=== PATIENT | male | born 2000 | race Caucasian/White ===

== ENCOUNTER 2021-11-26 11:42 | Emergency (ER) | payer OTHER, SELFPAY ==
[2021-11-26 11:59] VITALS: BP 126/74; PULSE 70; RESP 18; TEMP 36.5; O2SAT 100; BMI 20.9
--- NOTE | 2021-11-26 13:49 | ED_ITS ---
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 He did fall from standing, did hit the back of his head on the desk but has no new headache or significant pain with that. It is a little sore. It was brief and he knew that it was coming. He stood up started to feel nauseated and then vision started blacking out and had tunnel vision. He got up this morning had 1 sip of water. That was already had until after the event 20 started drinking more water. He has had maybe about 1/2 cup of water at this point. He is no longer feeling nauseated. Prior to this there was no abdominal pain, no nausea or vomiting no urinary symptoms. He felt sick over the weekend, did not check his temperature but felt feverish at times. At times he had chills and had to cover up with blankets. He had a headache with that in some generalized body aches but no specific symptoms such as cough, sore throat, otalgia, no GI symptoms. He has had no travel. His only other episode of fainting was when he was young when he cut himself and saw blood. He believes his mom has thyroid issues but otherwise is unaware of any significant cardiac issues in the family. Related Data Home Medications Medication Instructions Recorded Confirmed No Known Home Medications 11/26/21 11/26/21 Allergies Allergy/AdvReac Type Severity Reaction Status Date / Time No Known Drug Allergies Allergy Verified 11/26/21 12:03 Review of Systems Status of ROS: Reports: 10 or more systems reviewed and unremarkable except as noted in History and below PFSH PFS Social History Smoking Status: Never smoker Do you use any of these nicotine containing products: None Second hand tobacco smoke exposure: No How often do you have a drink containing alcohol: monthly or less How many standard drinks containing alcohol do you have on a typical day: 3 or 4 How often do you have six or more drinks on one occasion: Less than monthly AUDIT-C Alcohol total score: 3 Non-prescribed substance use: marijuana (any form) service: No Exam Const: Vital Signs, click to edit/add: Vital Signs - 24 hr 11/26/21 11:59 11/26/21 14:16 11/26/21 14:16 Temperature 97.7 F Pulse Rate [Right Pulse Oximeter] 70 Pulse Rate [orthos tatic lying] 65 Pulse Rate [orthos tatic sitting] Pulse Rate [orthos tatic standing] Respiratory Rate 18 Blood Pressure [Ri ght Upper Arm] 126/74 Blood Pressure [or thostatic lying] 123/73 Blood Pressure [or thostatic sitting] Blood Pressure [or thostatic standing ] Pulse Oximetry 100 99 Oxygen Delivery Me thod Room Air 11/26/21 14:23 11/26/21 15:00 Temperature Pulse Rate [Right Pulse Oximeter] 79 Pulse Rate [orthos tatic lying] 60 Pulse Rate [orthos tatic sitting] 68 Pulse Rate [orthos tatic standing] 90 Respiratory Rate 18 Blood Pressure [Ri ght Upper Arm] 120/79 Blood Pressure [or thostatic lying] 123/73 Blood Pressure [or thostatic sitting] 126/75 Blood Pressure [or thostatic standing ] 120/79 Pulse Oximetry 100 Oxygen Delivery Me thod Room Air Documenting provider has reviewed patient's vital signs: yes Common normals: no apparent distress, average body habitus, oriented x3, no limitations, healthy appearing, alert and well nourished General appearance: cooperative, comfortable and well kempt Nutritional appearance: thin HENMT: Common normals: normocephalic, head/scalp atraumatic, hearing grossly normal bilaterally, external ears normal, EAC's normal, TM's normal bilaterally, external nose normal, nasal mucous membranes and turbinates normal, oropharynx normal, dentition normal and gingiva normal Head and scalp: normocephalic and atraumatic Nose: external nose normal and nasal mucous membranes and turbinates normal External ear: external ears normal External auditory canal: EAC's normal Tympanic membrane: TM's normal bilaterally Other: Oropharynx with dry mucosa, tongue appears dry and not glistening but otherwise no lesions or abnormalities of the mucosa noted. Eye: Common normals: PERRL, EOMs intact bilaterally, conjunctivae normal and no scleral icterus Conjunctiva: conjunctiva(e) normal Pupil: PERRL Neck & C-Spine: Common normals: full ROM, no lymphadenopathy, supple, no meningeal signs, no JVD and thyroid normal Thyroid: thyroid normal Chest: Common normals: inspection of chest normal Resp: Common normals: normal respiratory effort, no retractions, no use of accessory muscles and clear to auscultation bilaterally Auscultation: clear to auscultation bilaterally Cardio: Common normals: no JVD, regular rate, regular rhythm, S1 normal heart sound, S2 normal heart sound, no gallops, no clicks, no murmurs and no rub Rate: regular rate Rhythm: regular rhythm Heart sounds: S1 normal and S2 normal GI: Common normals: Normal to inspection, nondistended, normoactive bowel sounds present, soft to palpation, non-tender, no hepatosplenomegaly, no masses and no bruits Palpation: soft and no hepatosplenomegaly Extremity: Common normals: normal to inspection, full ROM, normal capillary refill, no joint enlargement, no clubbing, cyanosis or edema, no calf tenderness and no pedal edema Neuro: Common normals: oriented x3, CN's II-XII intact bilaterally, moves all extremities, no focal motor deficits, no sensory deficits noted and gait normal Sensorium/orientation: alert Meningeal signs: no meningeal signs Speech: speech normal Psych: Appearance: well kempt Course Course Hospital Course: We will obtain EKG, have him on pulse oximetry while here. I will get orthostatic vitals. Given him an option of IV fluids verses drinking oral fluids for me. He would prefer to just drink oral fluids. We will get appropriate labs as well. Sounds as if he may have had a vasovagal episode in the setting of poor oral intake with underlying probable viral infection. Reevaluation(s) Reevaluation #1: Patient is re-evaluated, feeling fine. He has went through a whole bottle of water while here. He is not orthostatic, labs are normal, no abnormalities on pulse oximetry while here. COVID is negative. Have reviewed with him that this is presumably vasovagal syncope. With 1 episode, it is not overly concerning, however if he should start having subsequent episodes, further evaluation would be recommended. Time: 15:34 Vital Signs Vital signs: Initial Vital Signs Temperature 97.7 F 11/26/21 11:59 Temperature Source Temporal Artery Scan 11/26/21 11:59 Pulse Rate 70 11/26/21 11:59 Respiratory Rate 18 11/26/21 11:59 Blood Pressure 126/74 11/26/21 11:59 Blood Pressure Mean 91 11/26/21 11:59 Pulse Oximetry 100 11/26/21 11:59 Oxygen Delivery Method 11/26/21 11:59 Vital Signs Temperature 97.7 F 11/26/21 11:59 Pulse Rate 70 11/26/21 11:59 Respiratory Rate 18 11/26/21 11:59 Blood Pressure 126/74 11/26/21 11:59 Pulse Oximetry 100 11/26/21 11:59 Oxygen Delivery Method 11/26/21 11:59 Temperature 97.7 F 11/26/21 11:59 Pulse Rate 79 11/26/21 15:00 Respiratory Rate 18 11/26/21 15:00 Blood Pressure 120/79 11/26/21 15:00 Pulse Oximetry 100 11/26/21 15:00 Oxygen Delivery Method 11/26/21 15:00 Medical Decision Making Lab Data Lab results reviewed: Yes I reviewed the patient's lab results Labs: Lab Results 11/26/21 11/26/21 11/26/21 Range/Units 14:11 14:11 14:11 WBC 6.57 (4.50-11.00) K/uL RBC 5.14 (4.30-5.90) m/uL Hgb 15.6 (13.5-17.5) gm/dL Hct 43.9 (37.0-53.0) % MCV 85 (80-100) fL MCH 30 (26-34) pg MCHC 36 (32-36) gm/dL RDW Coeff of Ronna 11.8 (11.5-15.5) % Plt Count 174 (140-440) K/uL Neut % (Auto) 85.9 H (42.0-72.0) % Lymph % (Auto) 6.7 L (20-44) % [place] % (Auto) 6.8 (0.0-11.0) % Eos % (Auto) 0.0 (0.0-7.0) % Baso % (Auto) 0.3 (0.0-3.0) % Neut # (Auto) 5.60 (1.7-7.0) K/uL Lymph # (Auto) 0.40 L (0.90-2.90) K/uL [place] # (Auto) 0.40 (0.00-0.90) K/UL Eos # (Auto) 0.00 (0.00-0.50) K/uL Baso # (Auto) 0.02 (0.00-0.30) K/uL Abs Immat Gran (auto) 0.02 (0.00-0.30) K/uL VBG pH (7.32-7.43) VBG pCO2 (40-50) mmHG VBG pO2 (25-47) mmHG VBG HCO3 (21-28) mmol/L Sodium 134 L (135-149) mmol/L Potassium 4.7 (3.6-5.1) mmol/L Chloride 99 (96-114) mmol/L Carbon Dioxide 24 (20-32) mmol/L BUN 13 (5-24) mg/dL Creatinine 1.1 (0.5-1.5) mg/dL Estimated Creat Clear 103.09 Estimated GFR 99 ml/min Glucose 122 H (60-115) mg/dL Lactate 1.4 (0.5-1.9) mmol/L Calcium 9.4 (8.4-10.6) mg/dL Total Bilirubin 0.7 (0.1-1.5) mg/dL AST 27 (12-35) U/L ALT 16 (4-50) U/L Alkaline Phosphatase 111 (40-150) U/L C-Reactive Protein 3.5 H (0.5-1.0) mg/dL Total Protein 8.1 (6.0-8.3) g/dL Albumin 4.9 (3.3-5.0) g/dL TSH (0.270-4.200) uIU/mL SARS-CoV-2 (PCR) (Negative) POC Troponin I (0.01-0.04) ng/ml 11/26/21 11/26/21 11/26/21 Range/Units 14:11 14:11 14:11 WBC (4.50-11.00) K/uL RBC (4.30-5.90) m/uL Hgb (13.5-17.5) gm/dL Hct (37.0-53.0) % MCV (80-100) fL MCH (26-34) pg MCHC (32-36) gm/dL RDW Coeff of Ronna (11.5-15.5) % Plt Count (140-440) K/uL Neut % (Auto) (42.0-72.0) % Lymph % (Auto) (20-44) % [place] % (Auto) (0.0-11.0) % Eos % (Auto) (0.0-7.0) % Baso % (Auto) (0.0-3.0) % Neut # (Auto) (1.7-7.0) K/uL Lymph # (Auto) (0.90-2.90) K/uL [place] # (Auto) (0.00-0.90) K/UL Eos # (Auto) (0.00-0.50) K/uL Baso # (Auto) (0.00-0.30) K/uL Abs Immat Gran (auto) (0.00-0.30) K/uL VBG pH (7.32-7.43) VBG pCO2 (40-50) mmHG VBG pO2 (25-47) mmHG VBG HCO3 (21-28) mmol/L Sodium (135-149) mmol/L Potassium (3.6-5.1) mmol/L Chloride (96-114) mmol/L Carbon Dioxide (20-32) mmol/L BUN (5-24) mg/dL Creatinine (0.5-1.5) mg/dL Estimated Creat Clear Estimated GFR ml/min Glucose (60-115) mg/dL Lactate (0.5-1.9) mmol/L Calcium (8.4-10.6) mg/dL Total Bilirubin (0.1-1.5) mg/dL AST (12-35) U/L ALT (4-50) U/L Alkaline Phosphatase (40-150) U/L C-Reactive Protein (0.5-1.0) mg/dL Total Protein (6.0-8.3) g/dL Albumin (3.3-5.0) g/dL TSH 0.580 (0.270-4.200) uIU/mL SARS-CoV-2 (PCR) Negative SARS-CoV-2 (Negative) POC Troponin I 0.02 (0.01-0.04) ng/ml 11/26/21 Range/Units 14:11 WBC (4.50-11.00) K/uL RBC (4.30-5.90) m/uL Hgb (13.5-17.5) gm/dL Hct (37.0-53.0) % MCV (80-100) fL MCH (26-34) pg MCHC (32-36) gm/dL RDW Coeff of Ronna (11.5-15.5) % Plt Count (140-440) K/uL Neut % (Auto) (42.0-72.0) % Lymph % (Auto) (20-44) % [place] % (Auto) (0.0-11.0) % Eos % (Auto) (0.0-7.0) % Baso % (Auto) (0.0-3.0) % Neut # (Auto) (1.7-7.0) K/uL Lymph # (Auto) (0.90-2.90) K/uL [place] # (Auto) (0.00-0.90) K/UL Eos # (Auto) (0.00-0.50) K/uL Baso # (Auto) (0.00-0.30) K/uL Abs Immat Gran (auto) (0.00-0.30) K/uL VBG pH 7.376 (7.32-7.43) VBG pCO2 46 (40-50) mmHG VBG pO2 29.0 (25-47) mmHG VBG HCO3 27 (21-28) mmol/L Sodium (135-149) mmol/L Potassium (3.6-5.1) mmol/L Chloride (96-114) mmol/L Carbon Dioxide (20-32) mmol/L BUN (5-24) mg/dL Creatinine (0.5-1.5) mg/dL Estimated Creat Clear Estimated GFR ml/min Glucose (60-115) mg/dL Lactate (0.5-1.9) mmol/L Calcium (8.4-10.6) mg/dL Total Bilirubin (0.1-1.5) mg/dL AST (12-35) U/L ALT (4-50) U/L Alkaline Phosphatase (40-150) U/L C-Reactive Protein (0.5-1.0) mg/dL Total Protein (6.0-8.3) g/dL Albumin (3.3-5.0) g/dL TSH (0.270-4.200) uIU/mL SARS-CoV-2 (PCR) (Negative) POC Troponin I (0.01-0.04) ng/ml ECG Data Attestation: I personally reviewed and interpreted this ECG as follows: (Sinus rhythm, 70 beats per minute, sinus arrhythmia noted. QT corrected 412 milliseconds) Prior ECG tracings: not available for review Critical Care Time Critical Care Time Critical Care Time: No Discharge Plan Discharge Clinical Impression: Vasovagal syncope Patient Disposition: Home, Self-Care Condition: Stable Instructions: Syncope (ED) Additional Instructions: I recommend that she try to drink more in the morning, consider possibly eating breakfast or something small in the morning as well. If you have a subsequent episodes of passing out or syncope, do need to seek further evaluation. No tear COVID was negative here, laboratory evaluation was normal including the TSH. The thyroid came back normal just prior to your discharge. Activity Level: Activity as Tolerated Discharge Diet: Regular Prescriptions: No Action No Known Home Medications Stand Alone Forms: [facility] Info Instructions
[2021-11-26 14:16] VITALS: BP 123/73; PULSE 65; O2SAT 99
[2021-11-26 14:23] VITALS: BP 120/79; BP 123/73; BP 126/75; PULSE 60; PULSE 68; PULSE 90
[2021-11-26 14:24] LABS: HCO3 VBG 27 mmol/L (21-28); PCO2 VBG 46 mmHG (40-50); pH VBG 7.376 (7.32-7.43)
[2021-11-26 14:29] LABS: Basophils Absolute Auto 0.02 K/uL (0.00-0.30); Basophils Percent Auto 0.3 % (0.0-3.0); Hematocrit 43.9 % (37.0-53.0); Hemoglobin* 15.6 gm/dL (13.5-17.5); Immature Granulocytes Abs Auto 0.02 K/uL (0.00-0.30); Lactate* 1.4 mmol/L (0.5-1.9); Lymphocytes Percent Auto 6.7 % (20-44); Mean Corpuscular HGB Conc 36 gm/dL (32-36); Mean Corpuscular Hemoglobin 30 pg (26-34); Mean Corpuscular Volume 85 fL (80-100); Monocytes Percent Auto 6.8 % (0.0-11.0); Neutrophils Percent Auto 85.9 % (42.0-72.0); Platelet Count* 174 K/uL (140-440); RDW Coefficient of Variation % 11.8 % (11.5-15.5); Red Blood Count 5.14 m/uL (4.30-5.90); White Blood Count* 6.57 K/uL (4.50-11.00)
[2021-11-26 14:34] LABS: Slide Review Reflex No
[2021-11-26 14:47] LABS: Albumin* 4.9 g/dL (3.3-5.0); Chloride* 99 mmol/L (96-114); Sodium* 134 mmol/L (135-149)
[2021-11-26 14:48] LABS: Potassium* 4.7 mmol/L (3.6-5.1)
[2021-11-26 14:49] LABS: Creatinine* 1.1 mg/dL (0.5-1.5); Est. Creatinine Clearance* 103.09; Estimated Glomerular Filt Rate 99 ml/min
[2021-11-26 14:50] LABS: Alkaline Phosphatase* 111 U/L (40-150); Aspartate Amino Transferase* 27 U/L (12-35); Bilirubin Total* 0.7 mg/dL (0.1-1.5); Carbon Dioxide* 24 mmol/L (20-32); Total Protein* 8.1 g/dL (6.0-8.3)
[2021-11-26 14:51] LABS: Alanine Aminotransferase* 16 U/L (4-50); Blood Urea Nitrogen* 13 mg/dL (5-24); Calcium* 9.4 mg/dL (8.4-10.6); Glucose* 122 mg/dL (60-115)
[2021-11-26 14:52] LABS: Troponin, Point-of-Care* 0.02 ng/ml (0.01-0.04)
[2021-11-26 14:53] LABS: C Reactive Protein* 3.5 mg/dL (0.5-1.0)
[2021-11-26 15:00] VITALS: BP 120/79; PULSE 79; RESP 18; O2SAT 100
[2021-11-26 15:19] LABS: SARS PCR* Negative SARS-CoV-2 (Negative)
--- NOTE | 2021-11-26 15:21 | ED.NURSE ---
patient is feeling fine and denies rosas or vision problems. sitting in the bed and waiting for results.
== END 2021-11-26 15:43 | disposition home or self-care (01) ==
PROVIDERS: Emergency Provider Family Medicine
DX: R55 Syncope and collapse (principal)
CPT/HCPCS: 36415; 80053; 82803; 83605; 84443; 84484; 85025; 86140; 87635; 93005; 94761; 99284

== ENCOUNTER 2022-05-03 18:37 | Emergency (ER) | payer OTHER, SELFPAY ==
[2022-05-03 18:43] VITALS: BP 124/78; PULSE 89; RESP 18; TEMP 37.5; O2SAT 97; BMI 21.0
[2022-05-03 19:36] LABS: Basophils Absolute Auto 0.06 K/uL (0.00-0.30); Basophils Percent Auto 0.8 % (0.0-3.0); Eosinophils Absolute Auto 0.09 K/uL (0.00-0.50); Eosinophils Percent Auto 1.2 % (0.0-7.0); Hematocrit 41.1 % (37.0-53.0); Hemoglobin* 14.2 gm/dL (13.5-17.5); Immature Granulocytes Abs Auto 0.02 K/uL (0.00-0.30); Immature Granulocytes Pct Auto 0.3 %; Lymphocytes Absolute Auto 2.07 K/uL (0.90-2.90); Lymphocytes Percent Auto 27.5 % (20-44); Mean Corpuscular HGB Conc 35 gm/dL (32-36); Mean Corpuscular Hemoglobin 31 pg (26-34); Mean Corpuscular Volume 88 fL (80-100); Monocytes Percent Auto 4.2 % (0.0-11.0); Neutrophils Absolute Auto 4.98 K/uL (1.7-7.0); Platelet Count* 282 K/uL (140-440); RDW Coefficient of Variation % 12.1 % (11.5-15.5); Red Blood Count 4.66 m/uL (4.30-5.90); White Blood Count* 7.54 K/uL (4.50-11.00)
[2022-05-03 19:49] LABS: Albumin* 4.8 g/dL (3.3-5.0); Chloride* 104 mmol/L (96-114)
[2022-05-03 19:50] LABS: Potassium* 3.6 mmol/L (3.6-5.1); Sodium* 141 mmol/L (135-149)
[2022-05-03 19:52] LABS: Aspartate Amino Transferase* 19 U/L (12-35); Bilirubin Direct* 0.1 mg/dL (0.0-0.5); Bilirubin Total* 0.5 mg/dL (0.1-1.5); Carbon Dioxide* 29 mmol/L (20-32); Creatinine* 0.9 mg/dL (0.5-1.5); Estimated Glomerular Filt Rate 125 ml/min; Slide Review Reflex No; Total Protein* 7.9 g/dL (6.0-8.3)
[2022-05-03 19:53] LABS: Alanine Aminotransferase* 15 U/L (4-50); Alkaline Phosphatase* 74 U/L (40-150); Blood Urea Nitrogen* 15 mg/dL (5-24); Calcium* 9.4 mg/dL (8.4-10.6); Glucose* 136 mg/dL (60-115)
--- NOTE | 2022-05-03 20:03 | ED.GENADULT ---
HPI - General Adult General Date Seen: 05/03/22 Chief complaint: Unspecified Complaint, Adult Stated complaint: Possible thyroid issues, wants blood work done Time Seen by Provider: 05/03/22 18:55 Source: patient Mode of arrival: ambulatory Limitations: no limitations History of Present Illness HPI narrative: Patient is a 21-year-old [employer] student, he is a [employer], physics and math major urgently from [place]. He comes in wanting tested for thyroid levels. Says for the past couple of weeks since starting the new semester, he has felt significantly stressed. He feels that his court slowed is heavier. He has been fatigued, he feels that his face is swollen. He feels like his skin is dry. He has not had any chest pain or shortness of breath. He has not noted any extremity swelling. No vision changes. No rashes. His mother has Haile's thyroiditis and he says he has ?all the symptoms, so he is concerned that he now has Haile's thyroiditis. He does note some mild symptoms of depression, he says he overall feels that he manages stress okay, he plays soccer and broom ball and these are good outlets for him. He does not smoke, denies substance use aside from occasional alcohol. Related Data Home Medications Medication Instructions Recorded Confirmed No Known Home Medications 05/02/22 05/02/22 Allergies Allergy/AdvReac Type Severity Reaction Status Date / Time No Known Drug Allergies Allergy Verified 05/03/22 18:42 [facility] Medical History Neck Pain Social History Smoking Status: Never smoker Do you use any of these nicotine containing products: None Second hand tobacco smoke exposure: No How often do you have a drink containing alcohol: monthly or less How many standard drinks containing alcohol do you have on a typical day: 3 or 4 How often do you have six or more drinks on one occasion: Less than monthly AUDIT-C Alcohol total score: 3 Non-prescribed substance use: marijuana (any form) service: No Exam Narrative: Exam Narrative: Vital signs as noted above. In general, an alert, well-appearing patient. Head: Normocephalic, atraumatic. I do not appreciate any facial swelling. Eyes: Pupils are equal reactive. Extraocular movements are full. Conjunctivae are normal. ENT: Mucous membranes are moist. Throat is normal. Neck: Supple without lymphadenopathy. Thyroid is normal. Heart: Regular rate and rhythm. No murmur or rub. Lungs: Clear bilaterally. No increased work of breathing, crackles or wheezes. Abdomen: Soft and nontender. No organomegaly. Extremities: Well perfused. No edema. No calf tenderness. Pulses intact. Neurologic: Patient is alert and oriented to person and place. Speech is fluent. Face is symmetric. Moves all extremities equally. Affect: Normal. Skin: Warm and dry. Well perfused. Const: Vital Signs, click to edit/add: Vital Signs - 24 hr 05/03/22 18:43 05/03/22 20:39 Temperature 99.5 F Pulse Rate [Pulse Oximeter] 89 63 Respiratory Rate 18 16 Blood Pressure [Ri ght Upper Arm] 124/78 124/80 Pulse Oximetry 97 96 Oxygen Delivery Me thod Room Air Room Air Documenting provider has reviewed patient's vital signs: yes Course Course Hospital Course: I checked a few routine labs including a CBC which shows a normal white blood cell count, hemoglobin of 14.2, normal platelets. Metabolic panel is normal, blood sugar nonfasting is 136. LFTs are normal. TSH is likewise normal at 0.595. I have discussed his results with him, and reassured him that his thyroid is normal, other labs are reassuring. He remains concerned that something is wrong. I have asked him to make sure that he is getting enough sleep, make sure that he is managing stress. For now, I would recommend that we just watch these symptoms and if he is having persistent problems that he follow up in clinic for additional evaluation is needed. Certainly, if he is worsening, if new symptoms develop, he can return at any time to the emergency department. At present, symptoms are somewhat non specific, exam is normal, vital signs are normal, labs are all normal. Specific diagnosis is not evident at this time. Vital Signs Vital signs: Initial Vital Signs Temperature 99.5 F 05/03/22 18:43 Temperature Source Temporal Artery Scan 05/03/22 18:43 Pulse Rate 89 05/03/22 18:43 Pulse Rhythm 05/03/22 18:43 Respiratory Rate 18 05/03/22 18:43 Blood Pressure 124/78 05/03/22 18:43 Blood Pressure Mean 93 05/03/22 18:43 Blood Pressure Position Sitting 05/03/22 18:43 Pulse Oximetry 97 05/03/22 18:43 Oxygen Delivery Method 05/03/22 18:43 Vital Signs Temperature 99.5 F 05/03/22 18:43 Pulse Rate 89 05/03/22 18:43 Respiratory Rate 18 05/03/22 18:43 Blood Pressure 124/78 05/03/22 18:43 Pulse Oximetry 97 05/03/22 18:43 Oxygen Delivery Method 05/03/22 18:43 Temperature 99.5 F 05/03/22 18:43 Pulse Rate 63 05/03/22 20:39 Respiratory Rate 16 05/03/22 20:39 Blood Pressure 124/80 05/03/22 20:39 Pulse Oximetry 96 05/03/22 20:39 Oxygen Delivery Method 05/03/22 20:39 Medical Decision Making Lab Data Labs: Lab Results 05/03/22 05/03/22 05/03/22 Range/Units 19:31 19:31 19:31 WBC 7.54 (4.50-11.00) K/uL RBC 4.66 (4.30-5.90) m/uL Hgb 14.2 (13.5-17.5) gm/dL Hct 41.1 (37.0-53.0) % MCV 88 (80-100) fL MCH 31 (26-34) pg MCHC 35 (32-36) gm/dL RDW Coeff of Ronna 12.1 (11.5-15.5) % Plt Count 282 (140-440) K/uL Neut % (Auto) 66.0 (42.0-72.0) % Lymph % (Auto) 27.5 (20-44) % [place] % (Auto) 4.2 (0.0-11.0) % Eos % (Auto) 1.2 (0.0-7.0) % Baso % (Auto) 0.8 (0.0-3.0) % Neut # (Auto) 4.98 (1.7-7.0) K/uL Lymph # (Auto) 2.07 (0.90-2.90) K/uL [place] # (Auto) 0.30 (0.00-0.90) K/UL Eos # (Auto) 0.09 (0.00-0.50) K/uL Baso # (Auto) 0.06 (0.00-0.30) K/uL Sodium 141 (135-149) mmol/L Potassium 3.6 (3.6-5.1) mmol/L Chloride 104 (96-114) mmol/L Carbon Dioxide 29 (20-32) mmol/L BUN 15 (5-24) mg/dL Creatinine 0.9 (0.5-1.5) mg/dL Estimated Creat Clear 130.20 Estimated GFR 125 ml/min Glucose 136 H (60-115) mg/dL Calcium 9.4 (8.4-10.6) mg/dL Total Bilirubin 0.5 (0.1-1.5) mg/dL Direct Bilirubin 0.1 (0.0-0.5) mg/dL AST 19 (12-35) U/L ALT 15 (4-50) U/L Alkaline Phosphatase 74 (40-150) U/L Total Protein 7.9 (6.0-8.3) g/dL Albumin 4.8 (3.3-5.0) g/dL TSH 0.595 (0.270-4.200) uIU/mL Discharge Plan Discharge Clinical Impression: Malaise and fatigue Patient Disposition: Home, Self-Care Condition: Stable Instructions: Fatigue (ED) Additional Instructions: Make sure you are getting another sleep and managing stress. If you feel that your symptoms are persistent any need additional evaluation, follow-up with clinic. If you feel you are getting worse or new symptoms, return to the emergency department. Prescriptions: No Action No Known Home Medications Follow Up/Referrals: Provider,Not a Local [Primary Care Provider] - Stand Alone Forms: IMN Info Instructions
[2022-05-03 20:39] VITALS: BP 124/80; PULSE 63; RESP 16; O2SAT 96
[2022-05-03 20:39] LABS: TSH With Reflex to FT4* 0.595 uIU/mL (0.270-4.200)
== END 2022-05-03 21:18 | disposition home or self-care (01) ==
PROVIDERS: Emergency Provider Emergency Medicine
DX: R53.81 Other malaise (principal); R53.83 Other fatigue
CPT/HCPCS: 36415; 80048; 80076; 84443; 85025; 99282; 99284

== ENCOUNTER 2023-02-13 16:46 | Day surgery (SDC) | payer OTHER, SELFPAY ==
[2023-02-13] VITALS (15 sets, daily range): BP systolic 125–156; BP diastolic 68–97; PULSE 70–98; RESP 12–18; TEMP 35.4–37.3; O2SAT 95–100; BMI 22.3
--- NOTE | 2023-02-13 17:20 | CRLHL7_ITS ---
For Patients: As a result of the Century Cures Act, medical imaging exams and procedure reports are released immediately into your electronic medical record. You may view this report before your referring provider. If you have questions, please contact your health care provider. INDICATION: Right lower quadrant abdominal pain COMPARISON: None. TECHNIQUE: CT of the abdomen and pelvis after the administration of intravenous contrast. Multiplanar axial, coronal, and sagittal reformats were reconstructed. Contrast: 79 mL Isovue 370 intravenously. Oral contrast was not administered. FINDINGS: Lung bases: Normal. Liver: Normal. No masses. Normal vasculature. Gallbladder and biliary tree: Normal gallbladder. No biliary duct dilation. Pancreas: Normal. Spleen: Normal. Normal size. Adrenal glands: Normal. No nodules. Kidneys and bladder: Normal size and position. No cyst or mass. No calculi. No urinary tract dilation. The urinary bladder is normal. GI: The appendix is dilated up to 1.6 cm. The appendiceal wall is thickened slightly hyper enhancing. There is a small appendicolith at the base. There is a mild amount of adjacent inflammation with no perforation or abscess. There is a large stool burden in the right colon. No dilated small bowel. Vessels: Aorta and major branches, including the mesenteric vessels: Patent. Normal caliber. No atherosclerotic plaques. IVC and tributaries: Normal. Mesenteric and portal veins: Normal. Peritoneum: No free fluid. Lymph nodes: No adenopathy. Pelvis: Physiologic appearance of the reproductive organs. Bones: Bilateral L5 pars defects with grade 1, 5 mm, anterolisthesis of L5 on S1. No focal bone lesions. Normal for age. Abdominal wall: Normal. IMPRESSION: IMPRESSION 1. Acute appendicitis. No abscess or perforation. 2. Bilateral L5 pars defects with grade 1 anterolisthesis of L5 on S1. Please note that all CT scans at this facility use dose modulation, iterative reconstruction, and/or weight-based dosing when appropriate to reduce radiation dose to as low as reasonably achievable. Dictated by Chandni Jay MD @ 02/13/2023 6:26:50 PM (Electronically Signed)
--- NOTE | 2023-02-13 17:22 | ED.ABDPAIN ---
HPI - Abdominal Pain General Time Seen by Provider: 17:15 Date Seen: 02/13/23 Chief Complaint: Abdominal Pain Stated Complaint: GI upset-New med reaction? Time Seen by Provider: 02/13/23 16:51 Source: patient and RN notes reviewed Mode of arrival: ambulatory Limitations: no limitations History of Present Illness HPI narrative: Patient is a 22-year-old male ambulatory into the ED of his own accord with complaint of right lower quadrant abdominal pain. He ate lunch somewhere around 11:00 a.m., knows he was done around noon. Since then he has developed some periumbilical abdominal pain that is moved to right lower quadrant. It was a little worse just while ago, maybe seems slightly better now. He notes he is not hungry at all, appetite is diminished. [place] crampy in nature at times, would state maybe 4/10 pain at most. He has had nausea since this started. There has been no vomiting, no diarrhea, no blood in stools. He has had no fevers but has noted some chills. He has had no respiratory symptoms such as cough chest pain or shortness of breath. He did start doxycycline a month ago for acne, did no that there could be a little GI distress with this but has not had any significant problems with it. See taken no medications, felt maybe a little better on the car ride over here. He has had no prior abdominal surgeries. No other medications, no allergies. His sister does have a history of a ruptured appendicitis. MD elicited complaint: abdominal pain Related Data Home Medications Medication Instructions Recorded Confirmed doxycycline hyclate 100 mg capsule 100 mg PO DAILY 02/13/23 02/13/23 Allergies Allergy/AdvReac Type Severity Reaction Status Date / Time No Known Drug Allergies Allergy Verified 05/03/22 18:42 Review of Systems Status of ROS Reports: 6 or more systems reviewed and unremarkable except as noted in History and below [facility] Medical History Neck Pain Social History (Updated 02/13/23 @ 20:57 by Kristin Sapp MD) Narrative: Is a senior at [employer]. He is a physics and math major. He does not smoke or drink alcohol. Smoking Status: Never smoker Do you use any of these nicotine containing products: None Second hand tobacco smoke exposure: No How often do you have a drink containing alcohol: monthly or less How many standard drinks containing alcohol do you have on a typical day: 3 or 4 How often do you have six or more drinks on one occasion: Less than monthly AUDIT-C Alcohol total score: 3 Non-prescribed substance use: marijuana (any form) service: No Exam Const: Vital Signs, click to edit/add: Vital Signs - 24 hr 02/13/23 16:53 Temperature 98.5 F Pulse Rate [Pulse Oximeter] 98 Respiratory Rate 18 Blood Pressure [Ri ght Upper Arm] 141/76 H Pulse Oximetry 100 Oxygen Delivery Me thod Room Air This 22-year-old male is standing in the room when I come in, he is alert, interactive, no apparent distress. Sclera clear, face atraumatic, able speak in complete sentences. Neck supple, no cervical adenopathy or thyromegaly masses or nodules. Lungs are clear, good air entry, no wheezing crackles. CV regular rate and rhythm, no murmur, normal S1 and S2, no S3 or S4. Abdomen is flat, nondistended, has normal-sounding bowel sounds. He has no organomegaly, no palpable masses, no rebound or guarding but does have some right lower quadrant tenderness. Skin visualized without rash. Documenting provider has reviewed patient's vital signs: yes Course Course ED Course: This 22-year-old male has abdominal pain and definite right lower quadrant tenderness on examination. I would request that we proceed with CT imaging with IV contrast to rule out such and disease as appendicitis. This could be gastroenteritis, constipation, possible urinary pathology. CT imaging and full complement of labs this will help delineate underlying intra-abdominal process. We will proceed with a L of IV fluids. He is declining anything for pain management or nausea at this time, is aware to let me know if he does have changing symptoms. Reevaluation(s) Time of Reevaluation #1: 18:40 Reevaluation #1: Have updated our general surgeon Dr. Sapp regarding CT showing acute appendicitis. Will update patient. Plan will be to go to the OR this evening. Vital Signs Vital signs: Initial Vital Signs Temperature 98.5 F 02/13/23 16:53 Temperature Source Temporal Artery Scan 02/13/23 16:53 Pulse Rate 98 02/13/23 16:53 Respiratory Rate 18 02/13/23 16:53 Blood Pressure 141/76 H 02/13/23 16:53 Blood Pressure Mean 97 02/13/23 16:53 Pulse Oximetry 100 02/13/23 16:53 Oxygen Delivery Method Room Air 02/13/23 16:53 Vital Signs Temperature 98.5 F 02/13/23 16:53 Pulse Rate 98 02/13/23 16:53 Respiratory Rate 18 02/13/23 16:53 Blood Pressure 141/76 H 02/13/23 16:53 Pulse Oximetry 100 02/13/23 16:53 Oxygen Delivery Method Room Air 02/13/23 16:53 Temperature 97.8 F 02/14/23 08:00 Pulse Rate 87 02/14/23 08:00 Respiratory Rate 16 02/14/23 08:00 Blood Pressure 138/84 02/14/23 08:00 Pulse Oximetry 99 02/14/23 08:00 Oxygen Delivery Method Room Air 02/14/23 08:00 Medications Administered Medications: Discontinued Medications Generic Name Dose Route Start Last Admin Trade Name Freq PRN Reason Stop Dose Admin Sodium Chloride 1,000 mls @ 500 mls/hr 02/13/23 17:21 02/13/23 18:01 0.9 % Sodium Chloride 1000 Ml IV 02/13/23 19:20 500 mls/hr .Q2H CARINA Administration Lactated Ringer's 1,000 mls @ 125 mls/hr 02/13/23 23:01 02/13/23 23:27 Lactated Ringers 1000 Ml IV 125 mls/hr .Q8H CARINA Administration Ketorolac Tromethamine 15 mg 02/13/23 20:11 02/13/23 20:18 Ketorolac 15 Mg/Ml Inj IVP 02/13/23 20:12 15 mg ONCE ONE Administration Piperacillin Sod/Tazobactam Sod 3.375 gm 02/13/23 20:56 02/13/23 21:14 Piperacillin/Tazobactam 3.375 Gm Inj IVPB 02/13/23 20:57 3.375 gm ONCE ONE Administration MDM - Abdominal Pain Differential Diagnosis Differential diagnosis: Likely abdominal pain, acute appendicitis, calculus of kidney, constipation and gastroenteritis Lab Data Attestation: I reviewed the patient's lab results. Labs: Lab Results 02/13/23 Range/Units 17:42 WBC 16.52 H (4.50-11.00) K/uL RBC 4.92 (4.30-5.90) m/uL Hgb 15.0 (13.5-17.5) gm/dL Hct 43.6 (37.0-53.0) % MCV 89 (80-100) fL MCH 31 (26-34) pg MCHC 34 (32-36) gm/dL RDW Coeff of Ronna 11.5 (11.5-15.5) % Plt Count 270 (140-440) K/uL Neut % (Auto) 84.6 H (42.0-72.0) % Lymph % (Auto) 8.7 L (20-44) % [place] % (Auto) 5.1 (0.0-11.0) % Eos % (Auto) 1.2 (0.0-7.0) % Baso % (Auto) 0.2 (0.0-3.0) % Neut # (Auto) 14.00 H (1.7-7.0) K/uL Lymph # (Auto) 1.40 (0.90-2.90) K/uL [place] # (Auto) 0.80 (0.00-0.90) K/UL Eos # (Auto) 0.20 (0.00-0.50) K/uL Baso # (Auto) 0.00 (0.00-0.30) K/uL Abs Immat Gran (auto) 0.00 (0.00-0.30) K/uL Imm/Tot Granulo (auto) 0.2 % Sodium 139 (135-149) mmol/L Potassium 3.9 (3.6-5.1) mmol/L Chloride 100 (96-114) mmol/L Carbon Dioxide 29 (20-32) mmol/L Anion Gap 10 (7-15) mEq/L BUN 19 (5-24) mg/dL Creatinine 1.0 (0.5-1.5) mg/dL Estimated Creat Clear 119.95 Estimated GFR 110 ml/min Glucose 114 (60-115) mg/dL Lactate 1.7 (0.5-1.9) mmol/L Calcium 9.7 (8.4-10.6) mg/dL Total Bilirubin 0.3 (0.1-1.5) mg/dL AST 27 (12-35) U/L ALT 27 (4-50) U/L Alkaline Phosphatase 84 (40-150) U/L C-Reactive Protein 1.5 H (0.5-1.0) mg/dL Total Protein 8.3 (6.0-8.3) g/dL Albumin 5.0 (3.3-5.0) g/dL Imaging Data CT scan - abdomen: Attestation: I have reviewed the pertinent imaging results. Radiologist's impression: Patient: SILVINA WALKER Facility:?[facility] Patient ID:?[id number] Site Patient ID:?[id number]. Site :?[id number] Study:?CT Abdomen/Pelvis W ISOVUE 370-02/13/2023 6:01:51 PM Ordering Physician:Brien Urbina Final Report: INDICATION: Right lower quadrant abdominal pain COMPARISON: None. TECHNIQUE: CT of the abdomen and pelvis after the administration of intravenous contrast. Multiplanar axial, coronal, and sagittal reformats were reconstructed. Contrast: 79 mL Isovue 370 intravenously. Oral contrast was not administered. FINDINGS: Lung bases: Normal. Liver: Normal. No masses. Normal vasculature. Gallbladder and biliary tree: Normal gallbladder. No biliary duct dilation. Pancreas: Normal. Spleen: Normal. Normal size. Adrenal glands: Normal. No nodules. Kidneys and bladder: Normal size and position. No cyst or mass. No calculi. No urinary tract dilation. The urinary bladder is normal. GI: The appendix is dilated up to 1.6 cm. The appendiceal wall is thickened slightly hyper enhancing. There is a small appendicolith at the base. There is a mild amount of adjacent inflammation with no perforation or abscess. There is a large stool burden in the right colon. No dilated small bowel. Vessels: Aorta and major branches, including the mesenteric vessels: Patent. Normal caliber. No atherosclerotic plaques. IVC and tributaries: Normal. Mesenteric and portal veins: Normal. Peritoneum: No free fluid. Lymph nodes: No adenopathy. Pelvis: Physiologic appearance of the reproductive organs. Bones: Bilateral L5 pars defects with grade 1, 5 mm, anterolisthesis of L5 on S1. No focal bone lesions. Normal for age. Abdominal wall: Normal. IMPRESSION: IMPRESSION 1. Acute appendicitis. No abscess or perforation. 2. Bilateral L5 pars defects with grade 1 anterolisthesis of L5 on S1. Please note that all CT scans at this facility use dose modulation, iterative reconstruction, and/or weight-based dosing when appropriate to reduce radiation dose to as low as reasonably achievable. Dictated by Chandni Jay MD @ 02/13/2023 6:26:50 PM (Electronic Signature) Critical Care Time Critical Care Time Critical Care Time: No Discharge Plan Discharge Clinical Impression: Acute appendicitis Activity Level: Activity as Tolerated Activity Detail: No lifting more than 20 lb for 2 weeks. This includes core exercises. Discharge Diet: Regular
[2023-02-13 17:48] LABS: Lactate* 1.7 mmol/L (0.5-1.9)
[2023-02-13 17:49] LABS: Basophils Percent Auto 0.2 % (0.0-3.0); Eosinophils Percent Auto 1.2 % (0.0-7.0); Hematocrit 43.6 % (37.0-53.0); Immature Granulocytes Pct Auto 0.2 %; Lymphocytes Percent Auto 8.7 % (20-44); Mean Corpuscular HGB Conc 34 gm/dL (32-36); Mean Corpuscular Hemoglobin 31 pg (26-34); Mean Corpuscular Volume 89 fL (80-100); Monocytes Percent Auto 5.1 % (0.0-11.0); Neutrophils Percent Auto 84.6 % (42.0-72.0); Platelet Count* 270 K/uL (140-440); RDW Coefficient of Variation % 11.5 % (11.5-15.5); Red Blood Count 4.92 m/uL (4.30-5.90); White Blood Count* 16.52 K/uL (4.50-11.00)
[2023-02-13 17:52] LABS: Slide Review Reflex No
[2023-02-13] MEDS: 0.9 % SODIUM CHLORIDE 1000 ml 1,000 ML 500 ML IV (18:01)
[2023-02-13 18:06] LABS: Chloride* 100 mmol/L (96-114)
[2023-02-13 18:07] LABS: Potassium* 3.9 mmol/L (3.6-5.1); Sodium* 139 mmol/L (135-149)
[2023-02-13 18:09] LABS: Est. Creatinine Clearance* 119.95; Estimated Glomerular Filt Rate 110 ml/min
[2023-02-13 18:10] LABS: Alanine Aminotransferase* 27 U/L (4-50); Alkaline Phosphatase* 84 U/L (40-150); Anion Gap 10 mEq/L (7-15); Aspartate Amino Transferase* 27 U/L (12-35); Bilirubin Total* 0.3 mg/dL (0.1-1.5); Blood Urea Nitrogen* 19 mg/dL (5-24); Calcium* 9.7 mg/dL (8.4-10.6); Carbon Dioxide* 29 mmol/L (20-32); Glucose* 114 mg/dL (60-115); Total Protein* 8.3 g/dL (6.0-8.3)
[2023-02-13 18:13] LABS: C Reactive Protein* 1.5 mg/dL (0.5-1.0)
[2023-02-13] MEDS: KETOROLAC 15 MG/ML inj IVP (20:18)
--- NOTE | 2023-02-13 20:56 | PM.GSHP ---
History of Present Illness History of Present Illness Date Seen: 02/13/23 Chief complaint: GI upset-New med reaction? Narrative: Mike Laurent is a 22 year old male who presented to the emergency department this evening with abdominal pain. He states that today he went to his classes as normal but in the afternoon he developed lower abdominal pain. The pain was constant but was also crampy in nature. It is more painful to push on his abdomen. He states that the pain was a 4 to 5/10. It did not get worse with movement but nothing would take the pain away. He did eat lunch around noon but has not had an appetite since. He has not had any fevers. No urinary or bowel symptoms. [facility] Medical History Neck Pain Social History (Updated 02/13/23 @ 20:57 by Kristin Sapp MD) Narrative: Is a senior at [employer]. He is a physics and math major. He does not smoke or drink alcohol. Smoking Status: Never smoker Do you use any of these nicotine containing products: None Second hand tobacco smoke exposure: No How often do you have a drink containing alcohol: monthly or less How many standard drinks containing alcohol do you have on a typical day: 3 or 4 How often do you have six or more drinks on one occasion: Less than monthly AUDIT-C Alcohol total score: 3 Non-prescribed substance use: marijuana (any form) service: No Meds Home Medications and Allergies Home Medications Medication Instructions Recorded Confirmed Type doxycycline hyclate 100 mg capsule 100 mg PO DAILY 02/13/23 02/13/23 History Allergies Allergy/AdvReac Type Severity Reaction Status Date / Time No Known Drug Allergies Allergy Verified 05/03/22 18:42 Exam Narrative: Exam Narrative: General appearance: Alert, cooperative, and in no distress Eyes: PERRLA, eye lids clear, and sclera white HENT Head: Normocephalic Ears: External ears normal Pulmonary: Clear to auscultation bilaterally Cardiovascular Heart: Regular rate and rhythm Extremities: warm and well perfused Gastrointestinal Abdominal: No scars. He is tender in the right lower quadrant. No rebound or guarding. Musculoskeletal: Extremities: Upper: Both upper extremities have normal joint range of motion and intact strength. Lower: Both lower extremities have normal joint range of motion and intact strength. Skin: Normal skin color, texture, and turgor. Neurologic: No focal deficits Psychiatric: Alert, oriented, cooperative, normal affect. Const: Vital Signs, click to edit/add: Vital Signs - 24 hr 02/13/23 16:53 02/13/23 18:44 02/13/23 18:45 Temperature 98.5 F Pulse Rate 96 93 Pulse Rate [Pulse Oximeter] 98 Respiratory Rate 18 Blood Pressure 150/92 H Blood Pressure [Ri ght Upper Arm] 141/76 H Pulse Oximetry 100 100 100 Oxygen Delivery Me thod Room Air 02/13/23 19:37 Temperature Pulse Rate Pulse Rate [Pulse Oximeter] 89 Respiratory Rate 18 Blood Pressure Blood Pressure [Ri ght Upper Arm] 156/97 H Pulse Oximetry 99 Oxygen Delivery Me thod Room Air Results Results Labs: White blood cell count is 16. Abdomen CT scan report/results: report reviewed and image reviewed Additional studies: CT scan reviewed. Shows acute appendicitis without evidence of perforation. Assessment and Plan Assessment and plan (1) Acute appendicitis: Status: Acute Plan The patient is a 22-year-old male with acute appendicitis. We discussed that appendectomy is the preferred treatment for this. This can most often be done laparoscopically. We discussed risks and benefits of the procedure including but not limited to bleeding, need for conversion to open, risk of injury to other structures, need for possible bowel resection, and abscess formation. The patient understands that the risk of abscess is higher if the appendix is perforated. For that reason, we generally keep patient is in the hospital on IV antibiotics until vital signs and white blood cell count had normalized. We also discussed recovery including 2 weeks of lifting restrictions. He is agreeable to proceed we will plan on surgery this evening emergently.
--- NOTE | 2023-02-13 21:00 | P.GSOP_ITS ---
Operative Note Pre-op diagnosis: Acute appendicitis Post-op diagnosis: Same Type of Procedure: Laparoscopic appendectomy Indications: The patient is a 22-year-old male who developed abdominal pain earlier in the day. He presented to the emergency department and was found to have CT findings consistent with acute appendicitis. I recommended appendectomy and he agreed to proceed. Procedure Description: After discussing the risks and benefits of the procedure, the patient signed informed consent.? The operative site was marked and the patient was brought to the operating room and placed on the operating table in supine position.? Care was taken to pad the patient's pressure points.?? The patient was then intubated by anesthesia.?? The operative site was then prepped and draped in the usual sterile fashion.? A time-out was then performed. Entrance to the abdomen was obtained via Garcia technique at the umbilicus. A 12 mm port was placed in the abdomen was insufflated. 5 mm trocars were placed in both the left upper quadrant as well as left lower quadrant. The patient was then placed in Trendelenburg position with the right side up. The small bowel was gently moved out of the way and the appendix was in view. It was noted to be markedly dilated and inflamed. There was no evidence of perforation. There was no purulence in the abdomen. The appendix was grasped and pulled into view. A mesenteric window was created between the base of the appendix and the mesoappendix. An Endo-GABRIELLA purple load stapler was then used to transect the appendix at its base. The mesentery was thickened and inflamed and therefore the mesoappendix was divided using LigaSure. The appendix was then removed from the abdomen using an Endo-Catch bag. Of note, the appendix was quite dilated that this necessitated enlarging the fascia and skin incision to extract the appendix. The specimen was sent to pathology. The staple line and the mesoappendix were examined and hemostasis appeared excellent. The ports were then removed and the abdomen desufflated. The 12 mm port site fascia was closed with 0 Vicryl interrupted sutures. The s kin was then closed with absorbable subcuticular suture. Sterile dressings were then applied. Instrument sponge and needle counts were correct at the end of the case. The patient was then woken and transported to the PACU in stable condition. ? The patient tolerated the procedure well. Findings: Acute appendicitis without evidence of perforation Anesthesia: GETA Surgeon: Kristin Sapp MD Estimated blood loss (mL): 5 Specimen: Appendix Condition: stable Disposition: PACU Date of procedure: 02/13/23
[2023-02-13] MEDS: PIPERACILLIN/TAZOBACTAM 3.375 GM INJ IVPB (21:14)
--- NOTE | 2023-02-13 21:33 | W.ANESCHARGE ---
Anesthesia Charges Start Date/Time Anesthesia Start Date: 02/13/23 Anesthesia Start Time: 21:02 Stop Date/Time Anesthesia Stop Date: 02/13/23 Anesthesia Stop Time: 22:18 Summary Emergency: [employer]
[2023-02-13] MEDS: LACTATED RINGERS 1000 ML 1,000 ML 125 ML IV (23:27)
[2023-02-14 00:05] VITALS: PULSE 93; RESP 16; TEMP 35.4; O2SAT 97
[2023-02-14 00:30] VITALS: BP 135/84; PULSE 87; RESP 16; TEMP 35.4; O2SAT 96
[2023-02-14 04:21] VITALS: BP 134/77; PULSE 62; RESP 16; TEMP 36.3; O2SAT 99
--- NOTE | 2023-02-14 06:51 | PC.NURSE ---
Shift note [id number]: Pt alert & oriented x 4 and able to make needs known. Pt arrived for same day recovery to med/surg floor at approximately 2305. He has been afebrile and VSS. Pt rates abdominal pain/discomfort as 1/10 with ice pack used for pain control. Nursing staff did discuss pain medication orders with pt if pain increases or remains uncontrolled with ice though pt declined medications when offered. No edema noted. Surgical incisions to abdomen open to air with steri strips in place and scant amount of bloody drainage observed. LS clear to all lobes bilaterally with pt denying shortness of breath when asked. Pt reports last BM on 02/13/23. Pt decided to sleep and stay the night rather than discharging back to his dorm last night. No N/V noted this shift. Pt has voided x 1 and is drinking water and tolerating soda crackers. IV to L AC SL.
[2023-02-14 08:00] VITALS: BP 138/84; PULSE 87; RESP 16; TEMP 36.6; O2SAT 99
--- NOTE | 2023-02-14 14:19 | PC.NURSE ---
Discharge - Pt alert, oriented, pleasant at start of shift. Up independently in room. Denied SOB, nausea, dizziness. Pt rated pain at 1-2/10 and refused pain medication. Ice pack in place provided verbalized comfort. Dressing intact, dried blood noted on steri strips x 3. VSS, afebrile, tolerating RA and regular diet. Pt verbalized concern over missing class today, school note provided with discharge instructions. Discharge education provided, paperwork signed. Pt d/c home with sister at approximately 11:05.
== END 2023-02-14 11:05 | disposition home or self-care (01) ==
LOC: ED 19:56 → SS 20:48 → MEDSURG 23:17
PROVIDERS: Emergency Provider Family Medicine; Visit Provider Surgery
PROC: 0DTJ4ZZ Resection of Appendix, Percutaneous Endoscopic Approach (ICD-10-PCS; CPT 44970; principal; 2023-02-13 20:00)
DX: K35.80 Unspecified acute appendicitis (principal); R10.31 Right lower quadrant pain
CPT/HCPCS: 44970; 00840; 36415; 74177; 80053; 83605; 85025; 86140; 88304; 99140; 99284; J0330; J1100; J1170; J1885; J2250; J2371; J2405; J2543; J2704; J3010; J3490; J7030; J7120; Q9967